=== PATIENT | female | born 1980 | race Caucasian/White ===

== ENCOUNTER 2023-02-08 08:52 | Emergency (ER) | payer OTHER | END 2023-02-08 11:06 | disposition home or self-care (01) | LOC: JD.ED 08:52 | DX: S09.90XA Unspecified injury of head, initial encounter (principal); S39.012A Strain of muscle, fascia and tendon of lower back, initial encounter; F17.210 Nicotine dependence, cigarettes, uncomplicated; W01.0XXA Fall on same level from slipping, tripping and stumbling without subsequent striking against object, initial encounter | CPT/HCPCS: 70450; 70450-26; 72131; 72131-26; 99283 ==